=== PATIENT | female | born 1955 | race Caucasian/White ===

== ENCOUNTER 2018-12-27 06:24 | Inpatient (IN) ==
--- NOTE | 2018-12-09 12:07 | PAT Medication Instructions ---
Medication Instructions Date of Service December 09, 2018 Home Medications allopurinol 100 mg PO BID amlodipine 5 mg PO QAM aspirin 325 mg PO [id number] atorvastatin 10 mg PO PM folic acid 1 mg PO QAM furosemide 40 mg PO QAM losartan-hydrochlorothiazide 1 tab PO QAM methotrexate sodium 15 mg PO WK metoprolol tartrate 25 mg PO BID paroxetine HCl 10 mg PO QPM potassium chloride 20 meq PO BID prednisone 5 mg PO QPM ASK your prescriber and surgeon aspirin 325 mg PO [id number] - ask family practice doctor methotrexate sodium 15 mg PO WK - ask aquatics group fitness instructor DO NOT take the morning of surgery folic acid 1 mg PO QAM furosemide 40 mg PO QAM losartan-hydrochlorothiazide 1 tab PO QAM potassium chloride 20 meq PO BID Take morning of surgery With a small sip of water, OTHERWISE NOTHING TO EAT OR DRINK AFTER MIDNIGHT: allopurinol 100 mg PO BID amlodipine 5 mg PO QAM metoprolol tartrate 25 mg PO BID Take evening before surgery allopurinol 100 mg PO BID atorvastatin 10 mg PO PM metoprolol tartrate 25 mg PO BID paroxetine HCl 10 mg PO QPM potassium chloride 20 meq PO BID prednisone 5 mg PO QPM Other Notes If you have any questions please call us at [phone] or [phone] or [phone] or [phone]
--- NOTE | 2018-12-09 12:15 | Anesthesiology Consultation ---
Date of Service December 09, 2018 Assessment & Plan (1) Encounter for pre-operative examination: - No previous anesthesia records Chart Review Chart Review: Acceptable Risk for Surgery and Patient seen in Pre Admission Testing Consults Requested none Teaching & Discussion Pre-Anesthesia Teaching/Discussion Notes: Instructed NPO after midnight before surgery, except medications with 15 cc of water. Medication instructions provided according to the PAT guidelines. History Surgery Operation Date: 12/27/18 07:00 Proposed Procedures p Right Total Knee Arthroplasty - Dajuan Lester MD Height/Weight Height: 5 ft 3 in Weight: 134.9 kg Allergies Allergy/AdvReac Type Severity Reaction Status Date / Time No Known Allergies Allergy Verified 12/06/18 08:51 Medications Home Medications Medication Instructions Recorded Confirmed Last Taken allopurinol 100 mg PO BID 12/06/18 12/06/18 Unknown amlodipine 5 mg PO QAM 12/06/18 12/06/18 Unknown aspirin 325 mg PO [id number] 12/06/18 12/06/18 Unknown atorvastatin 10 mg PO PM 12/06/18 12/06/18 Unknown folic acid 1 mg PO QAM 12/06/18 12/06/18 Unknown furosemide 40 mg PO QAM 12/06/18 12/06/18 Unknown losartan-hydrochlorothiazide 1 tab PO QAM 12/06/18 12/06/18 Unknown methotrexate sodium 15 mg PO WK 12/06/18 12/06/18 Unknown metoprolol tartrate 25 mg PO BID 12/06/18 12/06/18 Unknown paroxetine HCl 10 mg PO QPM 12/06/18 12/06/18 Unknown potassium chloride 20 meq PO BID 12/06/18 12/06/18 Unknown prednisone 5 mg PO QPM 12/06/18 12/06/18 Unknown Past Medical History Medical History Anxiety Gout Hx of small bowel obstruction Hyperlipidemia Hypertension Lupus Osteoarthritis Rheumatoid arthritis Exercise / Class Metabolic Activity III < 4 Walking/Shop/Light housework (Own ADLs, Light housework, can self transfer. Denies CP or SOB. ) Past Family History Family History Mother Family history of diabetes mellitus Other FHx: heart disease Past Surgical History Surgical History History of back surgery X2 History of total left knee replacement Hx of appendectomy Hx of section X2 Hx of cholecystectomy Hx of colonoscopy Hx of hernia repair Past Anesthesia History No Hx of Anesthesia Complications and No Family Hx of Anesthesia Complications History of PONV No Hx of PONV and No Hx of Motion Sickness Social History Smoking Status: Former smoker Do You Dip or Chew Tobacco: No Smoking End Date: 35 YR AGO Hx Alcohol Use: No Hx Substance Use: No Review of Systems Patient denies chest pain, shortness of breath, dyspnea on exertion, reflux, cough, wheezing, palpitations. +Joint Pain (Knee, Back) Physical Exam Vital Signs BP: 135/62 P: 55 R: 14 T: 98.3 SPO2: 97% on RA Constitutional + morbidly obese ENMT Mouth: + dentures (upper and lower) and + edentulous Thyromental Distance: < 3.5 Finger Breadths (3) Mallampati Class: III Neck trachea midline and + thick neck; neck extension not limited Respiratory normal respiratory effort Auscultation: lungs clear to auscultation bilaterally Cardiovascular Rate/Rhythm: regular rate and regular rhythm Heart Sounds: no murmur Vessels: no carotid bruit distant heart tones (?due to body habitus) Neurologic moves all extremities Psychiatric Orientation: alert and oriented x 3 Testing Laboratory Results 12/09/18 11:55 12/09/18 11:52 PT 10.4 Seconds (9.0-12.0) 12/09/18 11:52 INR 1.0 (0.9-1.1) 12/09/18 11:52 APTT 27.3 Seconds (21.0-31.0) 12/09/18 11:52 Blood Type B Positive 12/09/18 11:55 Antibody Screen NEGATIVE 12/09/18 11:55 Electrocardiogram Date: 12/09/18 Findings: + SB @ (56) Chest X-Ray Date: 12/09/18 Findings: + NAD Cervical Spine Date: 12/09/18 IMPRESSION: Moderate multilevel degenerative change. 4 mm of anterior listhesis of C4 on C5 which increases to 5 mm in flexion and decreases to 3 mm in extension
--- NOTE | 2018-12-09 12:57 | XRay Report ---
XR chest Pre-admission PA/Lat CLINICAL HISTORY: Preoperative chest COMPARISON STUDY: No previous studies for comparison. FINDINGS: The cardiac and mediastinal contours are normal. There is no evidence of focal pulmonary co nsolidation. There is no evidence of failure. No pleural effusions are visualized.[ IMPRESSION: No active disease in the chest. Electronically signed by: Pilo Zuniga M.D. 12/09/2018 12:56 PM
--- NOTE | 2018-12-09 13:00 | XRay Report ---
LATERAL VIEWS OF THE CERVICAL SPINE IN FLEXION AND EXTENSION (3 VIEWS) CLINICAL HISTORY: Preoperative study. Rheumatoid arthritis. COMPARISON STUDY: None FINDINGS: There are multilevel degenerative changes. There is 4 mm of anterior listhesis of C4 on C5. This increases to 5 mm in flexion and measures 3 mm in extension. No fractures are visualized. IMPRESSION: Moderate multilevel degenerative change. 4 mm of anterior listhesis of C4 on C5 which in creases to 5 mm in flexion and decreases to 3 mm in extension Electronically signed by: Pilo Zuniga M.D. 12/09/2018 12:59 PM
[2018-12-09 14:02] LABS: Basophils # (auto) 0.04 K/uL (0-0.2); Basophils % (auto) 0.4 %; Eosinophils # (auto) 0.28 K/uL (0-0.5); Hematocrit (blood only) 35.6 % (37-47); Hemoglobin 11.1 g/dL (12.0-16.0); Immature Granulocytes # (auto) 0.07 K/uL (0.00-0.02); Immature Granulocytes % (auto) 0.7 %; Lymphocytes # (auto) 2.25 K/uL (1.2-3.4); Lymphocytes % (auto) 23.8 %; Mean Corpuscular Hgb Conc 31.2 g/dL (32-36); Mean Corpuscular Volume 90.4 fL (80-100); Mean Platelet Volume 10.8 fL (7.4-10.4); Monocytes # (auto) 0.86 K/uL (0.11-0.59); Monocytes % (auto) 9.1 %; Neutrophils # (auto) 5.97 K/uL (1.4-6.5); Platelet Count 313 K/uL (130-400); RDW Coefficient of Variation 16.4 % (11.5-14.5); RDW Standard Deviation 53.6 fL (36.4-46.3); Red Blood Count 3.94 M/uL (4.2-5.4); White Blood Count 9.47 K/uL (4.8-10.8)
[2018-12-09 14:12] LABS: BUN Creatinine Ratio 25.6 (10-20); C Reactive Protein 1.86 mg/dl (0-0.29); Calcium 9.6 mg/dl (8.5-10.1); Creatinine Clr Calc Pharmacy 106.5 ml/min; Est GFR (African American) 103.6; Est GFR (Non-African American) 89.4; Potassium 4.5 mmol/L (3.5-5.1)
[2018-12-09 14:27] LABS: Partial Thromboplastin Time 27.3 Seconds (21.0-31.0); Prothrombin Time 10.4 Seconds (9.0-12.0)
--- NOTE | 2018-12-24 03:06 | History and Physical Report ---
DATE OF ADMISSION: 12/23/2018 CHIEF COMPLAINT: Right knee pain, discomfort and disability. HISTORY OF PRESENT ILLNESS: The patient is a 63-year-old female who is referred by my partner Dr. Hinojosa for a surgical treatment of her right knee. She had a long history of bilateral knee pain and discomfort, had her left knee replacement by Dr. Herrera over in [place] several years ago. She was considering having something done with her right knee at that time and then developed some abdominal problems and small-bowel obstruction. She had some type of hernia surgery as well. She has now recovered from that. She has become more debilitated by right knee pain. She describes global pain. She has actually had difficulty getting around and using a wheelchair a lot of times for the past 3 months due to her pain. She cannot walk any significant distance. She has difficulty going up and down any stairs. She would like to have her right knee replaced. She has been through extensive conservative treatment in the past without relief. PAST MEDICAL HISTORY: Past medical history significant for: 1. Hypertension. 2. Elevated cholesterol. 3. Obesity with a BMI of 53. 4. Arthritis. 5. Peptic ulcer disease. PREVIOUS SURGERIES: Include: 1. x2. 2. Back surgery. 3. Left knee replacement done by Dr. Herrera. 4. Cholecystectomy. 5. Appendectomy. 6. Abdominal/hernia repair 6 months ago. ALLERGIES: None. CURRENT MEDICINES: Include: 1. Amlodipine. 2. Lasix. 3. Lipitor. 4. Metoprolol. 5. Aspirin. 6. Losartan. 7. Diclofenac. 8. Allopurinol. 9. Potassium. SOCIAL HISTORY: This is a 63-year-old female. She is . Does not drink. She has 2 children. FAMILY HISTORY: Noncontributory. REVIEW OF SYSTEMS: Significant for obesity. Denies any chest pain or shortness of breath. No history of DVT or PE. Denies any fevers or infectious symptoms. PHYSICAL EXAMINATION: GENERAL: Reveals an obese, middle-aged female. She is sitting in a wheelchair. HEENT: Benign. NECK: Supple, no lymphadenopathy. LUNGS: Clear to auscultation. HEART: Regular rate and rhythm. ABDOMEN: Soft, nontender, nondistended. EXTREMITIES: Grossly neurovascularly intact except as follows: Examination of the right knee reveals the patient with a very large soft tissue envelope. She has varus alignment to her knee. The knee is quite stiff with about 10 degree flexion contracture, can only flex to about 90 degrees. There is no instability. No pain with hip motion. X-RAYS: X-rays of the right knee reviewed. Shows advanced right knee DJD. She has complete loss of medial joint space. She has extensive lateral disease as well. She has tibial femoral subluxation. She has patellofemoral disease. ASSESSMENT: A 63-year-old female status post left knee replacement with advanced right knee tricompartment degenerative joint disease. She has become wheelchair bound due to her knee pain and would like to have her knee fixed. She has failed all conservative care. PLAN: We talked about treatment options. We are going to proceed with right knee replacement. The risks and benefits of right total knee replacement were explained to the patient including but not limited to DVT, PE, , infection, neurological injury, vascular injury, bleeding problem, pain, limited range of motion, stiffness, failure to relieve symptoms, incomplete relief of symptoms, need for further surgery in future, fracture, leg length inequality, nerve palsy, persistent pain, etc. I did tell her that due to her large size, she is certainly at increased risk of infection and complications and she is fully aware of this and wants to proceed. As far as her meds, she is going to stop her aspirin 10 days preop. Will use aspirin twice a day for DVT prophylaxis. We also talked about taking her metoprolol on the morning of surgery and hold the diclofenac 10 days preop. She is hoping to be discharged to home with some help from her family and home health. Of note, her has lung cancer and may be of limited assistance in recovery. Of note, the patient does have significantly elevated sed rate and C-reactive protein. She does have a diagnosis of underlying rheumatoid arthritis which certainly is likely a possible source of that. She states her left knee is doing fine and there are no signs of infectious process. MTDD
[~2018-12-27 06:24] MED LIST: ACETAMINOPHEN 500 MG TAB PO SCH; BUPIVACAINE LIPOSOME/PF 266 MG, BUPIVACAINE/EPINEPHRINE 50 ML, SODIUM CHLORIDE 0.9% 30 ... INFIL SCH; CEFAZOLIN 3000MG 72.5 ML IV SCH; FAMOTIDINE 20 MG TAB PO SCH; GABAPENTIN 300 MG CAP PO SCH; LR 500ML BOLUS, THEN 15ML/HR IV SCH; LR 60ML/HR IV SCH; METOCLOPRAMIDE HCL 10 MG TABLET PO SCH
[2018-12-27] MEDS ORDERED: EPINEPHrine INJ 1 MG/ML AMP ONE ×2 (06:40→08:35)
[2018-12-27] MEDS ORDERED: BUPIVACAINE 0.5 % 5 MG/1 ML PF 10ML VIAL ONE (06:40)
[2018-12-27] MEDS ORDERED: ROPIVACAINE 0.5% 5 MG/ML 30 ML VIAL ONE (06:40)
--- NOTE | 2018-12-27 06:55 | History & Physical Bridge Note ---
Date of Service December 27, 2018 History & Physical Bridge Note I have examined the patient, reviewed the History & Physical and in the interval since the performance of the History & Physical I have noted the following changes of clinical significance: no changes noted
[2018-12-27] MEDS ORDERED: PROPOFOL IV EMULSION 10 MG/ML 20 ML VIAL IV ONE ×3 (07:29→09:48)
[2018-12-27] MEDS ORDERED: fentaNYL citrate 100 MCG/2 ML VIAL ONE (07:29)
[2018-12-27] MEDS ORDERED: ONDANSETRON INJ 2 MG/ML 2 ML VIAL ONE (07:29)
[2018-12-27] MEDS ORDERED: MIDAZOLAM HCL 1 MG/ML 2ML VIAL ONE (07:29)
[2018-12-27] MEDS ORDERED: fentaNYL citrate 100 MCG/2 ML VIAL IV PRN (08:09)
[2018-12-27] MEDS ORDERED: ATROPINE SULFATE 0.1 MG/ML 10ML SYR IV PRN (08:09)
[2018-12-27] MEDS ORDERED: ONDANSETRON INJ 2 MG/ML 2 ML VIAL IV PRN ×2 (08:09→12:18)
[2018-12-27] MEDS ORDERED: ePHEDrine sulfate 50 MG/ML AMP IV PRN (08:09)
[2018-12-27] MEDS ORDERED: HYDROCORTISONE SOD SUCCINATE 100 MG/2 ML VIAL ONE (08:12)
[2018-12-27] MEDS ORDERED: BACITRACIN INJ 50,000 UNIT VIAL ONE (08:34)
[2018-12-27] MEDS ORDERED: BUPIVACAINE LIPOSOME 1.3% 266 MG/20 ML VIAL ONE (08:34)
[2018-12-27] MEDS ORDERED: BUPIVACAINE 0.25% 30 ML VIAL ONE (08:34)
[2018-12-27] MEDS ORDERED: SODIUM CHLORIDE 0.9% PF 50 ML VIAL ONE (08:34)
[2018-12-27] MEDS ORDERED: VANCOMYCIN HCL 1000MG/20ML VIAL ONE (08:35)
[2018-12-27] MEDS ORDERED: TRANEXAMIC ACID 1,000 MG in 0.9 % SODIUM CHLORIDE 100 ML IV ONE (08:45)
[2018-12-27] MEDS ORDERED: ePHEDrine sulfate 50 MG/ML SYR ONE (09:04)
--- NOTE | 2018-12-27 11:11 | Post Operative Brief Note ---
PG Immediate Post Op with CF Date of Surgery December 27, 2018 Pre & Post Diagnosis Operation Date: 12/27/18 08:50 Pre-Op Diagnosis: Right Knee Advanced Degenerative Joint Disease Post-Op Diagnosis: Right Knee Advanced Degenerative Joint Disease Procedure Operation Date: 12/27/18 08:50 Actual Procedures p Right Total Knee Arthroplasty(Right) - Dajuan Lester MD Surgeon Dajuan Lester MD [employer] Crewmember Sarah, PAC Estimated Blood Loss 50 Findings Consistent with Post-Op Diagnosis Fluids 1900 cc Specimens Specimen Description: A. Right Knee Bone and Tissue Drains Key Catheter (A 16 Slovak key catheter was inserted by BONITA Aparicio, without difficulty, clear yellow urine obtained, output to be monitored by Anesthesia.) Anesthesia Type Spinal MAC Complications none Disposition Accompanied Patient To Recovery: No Disposition: Recovery Room
--- NOTE | 2018-12-27 11:40 | XRay Report ---
XR knee RT 2V routine CLINICAL HISTORY: Surgical Post Op postoperative COMPARISON: None. DISCUSSION: Anatomic alignment posttotal right knee arthroplasty. There is a longstem tibial prosthet ic. There is good contact between prosthetic and underlying bone. Inspected soft tissue postoperative change IMPRESSION: Anatomic alignment posttotal right knee arthroplasty with longstem tibial prosthetic. The above report was generated using voice recognition software. It may contain grammatical, syntax or spelling errors. Electronically signed by: Parviz Infante M.D. 12/27/2018 11:39 AM
--- NOTE | 2018-12-27 11:55 | Anesthesiology Progress Note ---
Date of Service December 27, 2018 Anesthesia Post Procedure Vital Signs Vital Signs: Temp Pulse Pulse Resp BP BP Pulse Ox 12/27/18 11:45 63 16 131/63 97 12/27/18 11:35 36.9 C 67 16 131/54 L 97 12/27/18 11:25 67 16 114/57 L 100 12/27/18 11:19 37.2 C 75 19 101/47 L 98 12/27/18 07:31 36.7 C 66 18 150/67 H 97 Transfer of Care Handoff Completed per policy Notes Mental Status: alert / awake / arousable and participated in evaluation Patient Amnestic to Procedure: Yes Nausea / Vomiting: adequately controlled Pain: adequately controlled Airway Patency, RR, SpO2: stable & adequate BP & HR: stable & adequate Hydration State: stable & adequate Neuraxial Anesthesia: was administered and sensory block is resolving Anesthetic Complications: no major complications apparent and Pt Satisfied with anesthetic care
[2018-12-27] MEDS ORDERED: ALUMINUM/MAGNESIUM SUSP 30 ML UDC PO PRN (12:18)
[2018-12-27] MEDS ORDERED: MAGNESIUM HYDROXIDE SUSP 30 ML UDC PO PRN (12:18)
[2018-12-27] MEDS ORDERED: BISACODYL 10 MG SUPP PR PRN (12:18)
[2018-12-27] MEDS ORDERED: NALOXONE HCL 0.4 MG/1 ML VIAL/CARP IV PRN (12:18)
[2018-12-27] MEDS ORDERED: METOCLOPRAMIDE HCL INJ 5 MG/ML 2 ML VIAL IV PRN (12:18)
[2018-12-27] MEDS: SODIUM CHLORIDE 0.9% 1000ML 1,000 ML IV SCH ×2 (12:34→21:29)
[2018-12-27] MEDS: KETOROLAC TROMETHAMINE 15 MG/ML VIAL IV SCH ×2 (12:38→18:42)
[2018-12-27] MEDS: TRAMADOL HCL 50 MG TABLET PO PRN ×2 (13:36→19:05)
[2018-12-27] MEDS: ACETAMINOPHEN 500 MG TAB PO SCH ×2 (13:37→21:13)
[2018-12-27] MEDS: CEFAZOLIN 2000MG 2,000 MG/15 ML SYR IV SCH (16:38)
[2018-12-27] MEDS: ASCORBIC ACID 500 MG TAB PO SCH (16:38)
[2018-12-27] MEDS: FERROUS GLUCONATE 324 MG TAB PO SCH (16:38)
[2018-12-27] MEDS ORDERED: TRANEXAMIC ACID 1,000 MG in 0.9 % SODIUM CHLORIDE 100 ML IV SCH (17:00)
--- NOTE | 2018-12-27 19:32 | Progress Note ---
DATE: 12/27/2018 SUBJECTIVE: A 63-year-old white female postop now from a right knee replacement. She is doing pretty well. She is sitting up in her bedside chair and says her pain is very manageable. Denies any chest pain or shortness of breath. Not feeling dizzy or lightheaded. OBJECTIVE: VITAL SIGNS: Temperature 36.3. Vital signs stable. GENERAL: Shows an obese, middle-aged female. She is sitting up in her bedside chair, looks pretty comfortable. EXTREMITIES: Examination of the right leg reveals the dressing to be clean, dry and intact. She can dorsiflex and plantarflex her foot appropriately. She is neurologically intact. X-RAYS: X-rays of the right knee from recovery room are reviewed. It shows a right cemented posterior stabilized total knee arthroplasty. She does have a tibial stem due to her large size and osteopenia. Components looked to be in good position without signs of problems. ASSESSMENT: A 63-year-old white female postoperative from a right knee replacement due to severe arthritis. She is doing well. Pain is controlled. She is neurologically intact. PLAN: 1. DVT prophylaxis including thigh-high TEDs, SCDs, and aspirin twice a day. 2. PT/OT. Weight bear as tolerated. Right total knee protocol. 3. Pain control, doing well with current pain regimen. 4. IV antibiotics x24 hours. 5. Disposition: Plan to discharge her home likely with some home health once adequately recovered.
[2018-12-27] MEDS: ATORVASTATIN 10 MG TAB PO SCH (21:12)
[2018-12-27] MEDS: DOCUSATE SODIUM 100 MG CAP PO SCH (21:12)
[2018-12-27] MEDS: ALLOPURINOL 100 MG TAB PO SCH (21:13)
[2018-12-27] MEDS: METOPROLOL TARTRATE 25 MG TAB PO SCH (21:13)
[2018-12-27] MEDS: SENNA 8.6 MG TAB PO SCH (21:14)
[2018-12-27] MEDS: ASPIRIN 81 MG ECTAB PO SCH (21:14)
[2018-12-27] MEDS: POTASSIUM CHLORIDE 20 MEQ TABCR PO SCH (21:14)
[2018-12-27] MEDS: predniSONE 5 MG TAB PO SCH (21:14)
[2018-12-27] MEDS: PARoxetine HCl 10 MG TAB PO SCH (21:15)
[2018-12-28] MEDS: KETOROLAC TROMETHAMINE 15 MG/ML VIAL IV SCH ×4 (00:24→18:05)
[2018-12-28] MEDS: CEFAZOLIN 2000MG 2,000 MG/15 ML SYR IV SCH (00:24)
--- NOTE | 2018-12-28 02:58 | Operative Report ---
DATE OF OPERATION: 12/27/2018 SURGEON: Dajuan Lester MD GAS METER MECHANIC: BONITA Spears PREOPERATIVE DIAGNOSIS: Right knee degenerative joint disease. POSTOPERATIVE DIAGNOSIS: Right knee degenerative joint disease. PROCEDURE PERFORMED: Right cemented posterior stabilized total knee arthroplasty. COMPLICATIONS: None. ESTIMATED BLOOD LOSS: 50 mL. FLUID REPLACEMENT: 1900 mL crystalloid fluid replacement. TOURNIQUET TIME: 81 minutes at 350 mmHg. ANESTHESIA: Spinal with adductor canal block. DRAINS: None. SPECIMENS: Right knee sent for pathology. OPERATIVE INDICATIONS: The patient is a 63-year-old morbidly obese patient with a BMI of 53, who has had a long history of knee problems. She underwent a left knee replacement 4 years ago done elsewhere and has done pretty well from this. She continued to be debilitated by right knee pain to the point where she is almost wheelchair bound. X-rays revealed severe tricompartmental DJD with severe osteopenia. The patient elects to proceed with operative treatment. Due to the severity of her osteopenia as well as her marked obesity, I did place a tibial stem in order to try to maximize her tibial fixation. We also placed vancomycin in the cement due to her increased risk of infection. OPERATIVE FINDINGS: Operative findings revealed advanced right knee DJD. This patient had extensive grade 4 disease in all 3 compartments with extreme bone erosion and an inflamed knee with punctate bleeding in all 3 compartments. She had chronic ACL deficiency. OPERATIVE IMPLANTS: Operative implants consisted of: 1. Biomet Vanguard size 67.5 right posterior stabilized femoral component. 2. Biomet size 67 tibial tray with a 12 x 80 mm stem with a 5-mm offset and a small cruciate wing. 3. A 12-mm posterior stabilized polyethylene insert. 4. A 31 x 8 all poly patella. OPERATIVE PROCEDURE: The patient was taken to the operating room, identified and placed on the operating table in supine position. All contact areas were appropriately padded. IV antibiotics provided by anesthesia team. A spinal anesthetic and adductor canal block had been provided in the holding area. Jean Baptiste catheter was placed in sterile fashion. A right thigh tourniquet was then placed and the right lower extremity was then prepped and draped in usual sterile fashion. The right leg was elevated and exsanguinated with Esmarch and tourniquet was placed at 350 mmHg. An anterior approach of the right knee was then performed through a longitudinal incision centered over the patella. Sharp dissection was carried through subcutaneous tissue down to the level of the extensor mechanism. A medial parapatellar arthrotomy incision was made. Some subperiosteal dissection was carried out medially. I did have to do quite a bit of dissection as her knee was quite stiff. The fat pad was resected from beneath the patellar tendon. The patella was then subluxated laterally. The lateral patellofemoral ligament was released. The knee was flexed. The ACL was chronically absent. I released the PCL. I attempted to subluxate the tibia anteriorly, but could not do it due to the stiffness of her knee. Therefore, we elected to prepare the femur first. The distal femur was entered with a sharp drill bit. Intramedullary canal was suctioned. A right 5-degree valgus cutting guide was placed. Distal femoral cutting block was pinned in place. Distal femoral cut was made to take an additional 3 mm of bone off the distal femur. The femur was then sized to a size 67.5. We did downsize this slightly. The AP cutting block was pinned parallel to the epicondylar axis, which was 4 degrees of external rotation. The anterior cut, anterior chamfer cut, posterior cut, posterior chamfer cuts were made. Box cutting guide was placed and adjusted slightly. Lateral box cut was made. The knee was flexed. The remnants of the medial and lateral menisci were excised. The osteophytes were taken off the posterior aspect of the femur. I then proceeded to preparing the tibia. The tibia subluxated anteriorly. The intercondylar eminence was resected. I then entered the canal. With the canal initiated, we then reamed up to a size 12. We used the 12 reamer to cut the tibia. I took about an additional 2 mm off the most deficient aspect of the medial tibial plateau. The tibia was then sized to a size 67. I used a 5-mm offset and prepared the proximal tibia for an 80 x 12 mm offset stem with a small cruciate wing. The trial implant was assembled in place. The knee was then trialed and the 12-mm insert fit most appropriately. Attention was then drawn to patella. The patella was cleaned of all soft tissues. Patella thickness measured 18 mm in thickness, it was cut down to 13. It was sized to a size 31 patella. Lug holes were drilled for 31 patella. Lateral osteophyte was removed. Patella button was placed. Knee was taken through range of motion, patella tracked nicely with no thumbs test. We elected to place these implants. All trial implants were removed. A bone plug was placed in the distal femur to limit blood loss. A double batch of Palacos G cement was mixed with additional gram of vancomycin. A Biomet Vanguard size 67.5 right posterior stabilized femoral component, size 67 tibial tray with an 80 x 12 mm offset stem with a small cruciate wing, a 12-mm posterior stabilized polyethylene insert, and a 31 x 8 all poly patella then cemented in place. Knee was brought out into full extension until cement hardened. A final cement check was then performed. Pericapsular tissues were injected with a total of 100 mL of combination of 20 mL of Exparel, 30 mL of normal saline, 50 mL of 0.25% Marcaine with epinephrine. The patient did receive 1 gram of tranexamic acid. The tourniquet was let down for final tourniquet time of 81 minutes. Hemostasis was assured with use of electrocautery. The extensor mechanism was closed with combination of 1 PDS suture and #1 Vicryl suture in [id number] fashion. Extensor mechanism was checked and found to be intact. The subcutaneous tissue was then closed with 2 Dexon suture in a buried interrupted fashion. Skin was closed with skin chasidy. Leg was then cleaned, dried and a sterile dressing of Xeroform, 4 x 4, sterile cast padding and Henok bandage were applied. The patient was then transferred to the recovery room in stable condition. The patient tolerated the procedure well with no complication. All needle and sponge counts were correct at the end of the operation. I attest to the content of the Intraoperative Record and any orders documented therein. Any exception s are noted below.
[2018-12-28] MEDS: ACETAMINOPHEN 500 MG TAB PO SCH ×3 (06:25→20:42)
[2018-12-28 06:27] LABS: Hematocrit (blood only) 29.1 % (37-47); Hemoglobin 9.2 g/dL (12.0-16.0); Mean Corpuscular Hgb Conc 31.6 g/dL (32-36); Mean Platelet Volume 9.8 fL (7.4-10.4); Platelet Count 160 K/uL (130-400); RDW Coefficient of Variation 15.5 % (11.5-14.5); RDW Standard Deviation 50.1 fL (36.4-46.3); Red Blood Count 3.27 M/uL (4.2-5.4); White Blood Count 9.29 K/uL (4.8-10.8)
[2018-12-28 07:00] LABS: BUN Creatinine Ratio 20.4 (10-20); Calcium 8.2 mg/dl (8.5-10.1); Est GFR (African American) 82.2; Est GFR (Non-African American) 70.9; Potassium 4.2 mmol/L (3.5-5.1)
--- NOTE | 2018-12-28 07:32 | Anesthesiology Progress Note ---
Date of Service December 28, 2018 Anesthesia Post Procedure Vital Signs Vital Signs: Temp Pulse Pulse Resp BP Pulse Ox 12/28/18 04:00 36.7 C 73 16 128/82 97 12/27/18 23:00 36.6 C 74 16 124/75 96 12/27/18 19:04 36.6 C 65 17 138/75 96 12/27/18 15:13 36.3 C L 74 18 134/66 96 12/27/18 14:00 36.4 C L 77 18 142/66 H 96 12/27/18 12:56 74 18 143/76 H 92 12/27/18 12:30 72 18 143/70 H 94 12/27/18 11:45 63 16 131/63 97 12/27/18 11:35 36.9 C 67 16 131/54 L 97 12/27/18 11:25 67 16 114/57 L 100 12/27/18 11:19 37.2 C 75 19 101/47 L 98 Pain Intensity Right Knee: Pain Intensity: 3 Notes Mental Status: alert / awake / arousable and participated in evaluation Patient Amnestic to Procedure: Yes Nausea / Vomiting: adequately controlled Pain: adequately controlled Airway Patency, RR, SpO2: stable & adequate BP & HR: stable & adequate Hydration State: stable & adequate Neuraxial Anesthesia: was administered and sensory block resolved Anesthetic Complications: no major complications apparent and Pt Satisfied with anesthetic care
[2018-12-28] MEDS: FERROUS GLUCONATE 324 MG TAB PO SCH ×2 (08:04→18:05)
[2018-12-28] MEDS: TRAMADOL HCL 50 MG TABLET PO PRN ×2 (08:04→20:41)
[2018-12-28] MEDS: ASPIRIN 81 MG ECTAB PO SCH ×2 (08:05→20:41)
[2018-12-28] MEDS: POTASSIUM CHLORIDE 20 MEQ TABCR PO SCH ×2 (08:05→20:42)
[2018-12-28] MEDS: ALLOPURINOL 100 MG TAB PO SCH ×2 (08:05→20:42)
[2018-12-28] MEDS: DOCUSATE SODIUM 100 MG CAP PO SCH ×3 (08:05→20:47)
[2018-12-28] MEDS: FOLIC ACID 1 MG TAB PO SCH (08:05)
[2018-12-28] MEDS: FUROSEMIDE 40 MG TAB PO SCH (08:05)
[2018-12-28] MEDS: ASCORBIC ACID 500 MG TAB PO SCH ×2 (08:06→18:05)
[2018-12-28] MEDS: MULTIVITAMIN TAB PO SCH (08:06)
[2018-12-28] MEDS: AMLODIPINE BESYLATE 5 MG TAB PO SCH (08:06)
[2018-12-28] MEDS: METOPROLOL TARTRATE 25 MG TAB PO SCH ×2 (08:06→20:43)
[2018-12-28] MEDS: LOSARTAN/HCTZ 50/12.5MG TAB PO SCH (08:06)
[2018-12-28] MEDS: HYDROmorphone INJ 0.5 MG/0.5 ML SYR IV PRN ×3 (09:04→17:17)
--- NOTE | 2018-12-28 16:10 | Progress Note ---
DATE: 12/28/2018 SUBJECTIVE: A 63-year-old white female postop day 1 from right knee replacement. She is having quite a bit more pain today than last evening. Denies any chest pain or shortness of breath. Not feeling dizzy or lightheaded. She has primarily thigh pain. OBJECTIVE: VITAL SIGNS: Temperature 36.8. Vital signs stable. GENERAL: Physical examination shows a pleasant, middle-aged female. She is currently lying in bed and looks pretty comfortable. EXTREMITIES: Examination of the right leg reveals the leg to be well aligned. She can dorsiflex and plantarflex her foot appropriately. She cannot quite do a straight leg raise. LABORATORY DATA: Hemoglobin is 9.2. Hematocrit 29.1. Electrolytes are stable. ASSESSMENT: A 63-year-old white female postop day 1 from right knee replacement, doing okay. Having quite a bit more pain today, but she had a pretty around this arthritic knee. Had quite extensive surgery. She is neurologically intact. PLAN: 1. DVT prophylaxis including thigh-high TEDs, SCDs, and aspirin twice a day. 2. PT/OT. She will weightbear as tolerated. Right total knee protocol. 3. Pain control, doing okay with current pain regimen. We will continue to use narcotics sparingly, but she is certainly going to need some. 4. Disposition: She is hoping to be discharged to home with some home health once orthopedically stable and pain is adequately controlled. We will see how therapy goes tomorrow.
[2018-12-28] MEDS: PARoxetine HCl 10 MG TAB PO SCH (20:41)
[2018-12-28] MEDS: SENNA 8.6 MG TAB PO SCH ×2 (20:42→20:47)
[2018-12-28] MEDS: ATORVASTATIN 10 MG TAB PO SCH (20:42)
[2018-12-28] MEDS: predniSONE 5 MG TAB PO SCH (20:43)
[2018-12-29] MEDS: KETOROLAC TROMETHAMINE 15 MG/ML VIAL IV SCH ×2 (01:17→06:32)
[2018-12-29] MEDS: ACETAMINOPHEN 500 MG TAB PO SCH ×2 (06:31→13:01)
--- NOTE | 2018-12-29 08:20 | Progress Note ---
DATE: 12/29/2018 SUBJECTIVE: A 63-year-old white female postop day 2 from right knee replacement. She is doing better from a pain standpoint today. Mostly just thigh discomfort. No other complaints. No chest pain or shortness of breath. OBJECTIVE: VITAL SIGNS: Temperature 37.0. Vital signs stable. GENERAL: Physical examination shows an obese, middle-aged female. She is lying in bed, looks reasonably comfortable this morning. EXTREMITIES: Examination of the right leg reveals it to be well aligned. Incision is clean, dry and intact. No drainage. Calf is soft and supple. She can dorsiflex and plantarflex her foot appropriately. ASSESSMENT: A 63-year-old white female postop day 2 from right knee replacement, doing reasonably well. She is somewhat anemic, but without symptoms. Pain seems to be better this morning. PLAN: 1. DVT prophylaxis including thigh-high TEDs, SCDs, and aspirin twice a day. 2. PT/OT. She can weightbear as tolerated. Right total knee protocol. 3. Pain control, doing okay with current pain regimen. 4. Disposition. I discussed with her this morning options. She does have some help at home, but we offered her a rehab or shelter facility and she really wants to be home with her . We will see how therapy goes today and likely discharged with some home health later today.
[2018-12-29 08:24] LABS: Basophils # (auto) 0.03 K/uL (0-0.2); Basophils % (auto) 0.3 %; Eosinophils # (auto) 0.38 K/uL (0-0.5); Hematocrit (blood only) 28.3 % (37-47); Hemoglobin 8.8 g/dL (12.0-16.0); Immature Granulocytes # (auto) 0.05 K/uL (0.00-0.02); Immature Granulocytes % (auto) 0.5 %; Lymphocytes # (auto) 1.47 K/uL (1.2-3.4); Lymphocytes % (auto) 15.6 %; Mean Corpuscular Hgb Conc 31.1 g/dL (32-36); Mean Corpuscular Volume 88.2 fL (80-100); Mean Platelet Volume 10.1 fL (7.4-10.4); Monocytes % (auto) 10.6 %; Platelet Count 152 K/uL (130-400); RDW Coefficient of Variation 15.5 % (11.5-14.5); RDW Standard Deviation 50.6 fL (36.4-46.3); Red Blood Count 3.21 M/uL (4.2-5.4); White Blood Count 9.43 K/uL (4.8-10.8)
[2018-12-29] MEDS: ALLOPURINOL 100 MG TAB PO SCH (08:52)
[2018-12-29] MEDS: AMLODIPINE BESYLATE 5 MG TAB PO SCH (08:52)
[2018-12-29] MEDS: TRAMADOL HCL 50 MG TABLET PO PRN (08:52)
[2018-12-29] MEDS: METOPROLOL TARTRATE 25 MG TAB PO SCH (08:52)
[2018-12-29] MEDS: MULTIVITAMIN TAB PO SCH (08:53)
[2018-12-29] MEDS: LOSARTAN/HCTZ 50/12.5MG TAB PO SCH (08:53)
[2018-12-29] MEDS: POTASSIUM CHLORIDE 20 MEQ TABCR PO SCH (08:53)
[2018-12-29] MEDS: FERROUS GLUCONATE 324 MG TAB PO SCH (08:53)
[2018-12-29] MEDS: DOCUSATE SODIUM 100 MG CAP PO SCH (08:53)
[2018-12-29] MEDS: ASCORBIC ACID 500 MG TAB PO SCH (08:53)
[2018-12-29] MEDS: ASPIRIN 81 MG ECTAB PO SCH (08:54)
[2018-12-29] MEDS: FOLIC ACID 1 MG TAB PO SCH (08:54)
[2018-12-29] MEDS: FUROSEMIDE 40 MG TAB PO SCH (08:55)
[2018-12-30] MEDS ORDERED: metHOTREXate sodium 2.5 MG TAB PO SCH (09:00)
--- NOTE | 2019-01-03 15:28 | Discharge Summary ---
ADMITTING PHYSICIAN AND SURGEON: Dr. Dajuan Lester. ADMITTING DIAGNOSIS: Right knee degenerative joint disease. SURGERY PERFORMED: Right total knee arthroplasty. SECONDARY DIAGNOSES: Hypertension, elevated cholesterol, obesity, arthritis, peptic ulcer disease. CONSULTS: None obtained. HISTORY AND PHYSICAL EXAMINATION: Well documented in the patient's chart. HOSPITAL COURSE: The patient was admitted on 12/27/2018, underwent total knee arthroplasty, tolerated the procedure well. There were no complications. She was transferred to the PACU postoperatively and later to the orthopedic floor for further care. She was given Ancef for antibiotic prophylaxis, CATRINA stockings, SCDs and aspirin for DVT prophylaxis. She did have some anemia postoperatively, did not require any blood transfusions. There were no complications. By postoperative day 2, she was tolerating a regular diet, pain was controlled with oral pain medicine. She was participating in physical therapy. On postop day 2, she was discharged home, set up with home health services. She was given printed discharge instructions as well as new prescriptions for extra-strength Tylenol, aspirin, iron supplement and tramadol. Continue her home medications, continue physical therapy, weightbearing as tolerated, CATRINA stockings. Follow up approximately 2 weeks postop or sooner if there are any problems or concerns.
== END 2018-12-29 13:39 | disposition home health service (06) | DRG 470 ==
LOC: ASU 06:24 → 3E 11:15